=== PATIENT | female | born 1950 | race Caucasian/White ===

== ENCOUNTER 2020-11-24 06:28 | Day surgery (SDC) | payer MEDICARE, OTHER ==
[2020-11-24] MEDS ORDERED: Lactated Ringers 1,000 ML IV SCH (06:30)
[2020-11-24] MEDS ORDERED: DIPRIVAN 200 MG/20 ML IV ONE (07:52)
[2020-11-24] MEDS ORDERED: Lactated Ringers 1,000 ML IV ONE (08:05)
[2020-11-24 08:45] VITALS: O2SAT 95
[2020-11-24 09:13] VITALS: BP 144/68; PULSE 57
--- NOTE | 2020-11-24 09:20 | OP ---
SURGERY DATE/TIME: 11/24/2020 0801 PREOPERATIVE DIAGNOSIS: Dysphagia. POSTOPERATIVE DIAGNOSES: 1) Hiatal hernia. 2) Mild gastritis. 3) Esophageal spasms. PROCEDURE: Esophagogastroduodenoscopy with biopsy. SURGEON: Dr. Tanner. ANESTHESIA: Medications were given by the anesthesia department. BRIEF HISTORY: The patient is a 70 year old white female who is complaining of dysphagia. She reports an area of her neck as well as lower in her chest. The patient is felt the need to have endoscopic evaluation. She was appraised of the risks of the procedure including the risk of perforation, phlebitis, untoward reaction to medication, bleeding and missed lesions. The patient verbalized her understanding and desired to have the procedure performed. DESCRIPTION OF PROCEDURE: The patient was given the medications by the anesthesia department. She had continuous pulse oximetry, ECG monitoring, intermittent blood pressure monitoring and tidal CO2 monitoring during the examination. She was placed in the left lateral decubitus position. A bite block was placed and the flexible Olympus gastroscope was used to intubate the oropharynx. A view of the larynx was obtained and was normal. The scope was easily introduced in the esophagus which appeared to be normal throughout its length although there was noted what appeared to be esophageal spasm present. The gastroesophageal junction appeared to be normal. The scope was passed in the stomach where normal gastric rugal folds were seen and these distended nicely with insufflation of air. The scope was passed along the greater curvature of the stomach to the antrum which appeared to be mildly erythematous. The pylorus was encountered and intubated. The duodenum inspected and found to be normal. The scope is withdrawn towards the stomach. Again a retroflex view was obtained of the lesser curvature, fundus and cardia regions of the stomach and this is where we noted the patient had hiatal hernia. Biopsies were obtained from the gastric antrum to rule out the presence of Helicobacter pylori-type organisms with cold biopsy forceps. No other problems were noted. The scope is removed from the patient who tolerated the procedure well and sent back to outpatient recovery in good condition.
== END 2020-11-24 09:17 | disposition home or self-care (01) ==
LOC: SDC 06:28
PROVIDERS: ATTEND Family Medicine
DX: K44.9 Diaphragmatic hernia without obstruction or gangrene (principal); K29.70 Gastritis, unspecified, without bleeding; K22.4 Dyskinesia of esophagus; I10 Essential (primary) hypertension; Z79.899 Other long term (current) drug therapy
CPT/HCPCS: J2704

== ENCOUNTER 2021-07-20 16:30 | Emergency (ER) | payer MEDICARE, BC ==
--- NOTE | 2021-07-20 18:33 | ERPHSYRPT ---
- History of Present Illness Time Seen by Provider: 07/20/21 17:00 Source: patient Exam Limitations: no limitations Patient Subjective Stated Complaint: headache Triage Nursing Assessment: Patient ambulated back to ED and transferred self to bed. Patient A+O x3. Patient's skin pink, warm and dry. Patient complains of headache for 3 weeks. Patient states she fell out of bed 3 weeks ago hitting the right side of her head. Patient states ever since she has been dizzy, nauseated when she bends down and pain to back of head and behind eyes 6/10. Patient states she has been falling 4- 5 times since. Patient also complains of occasional forgetfulness. Physician History: Patient is a 70-year-old female presents to our ED with a 3-week history of a headache. Patient states she fell out of her bed and struck her head on the side of her nightstand. Since then patient has been experiencing a constant ongoing headache. Patient occasionally feels dizzy and nauseated. Patient is not dizzy or nauseated at this time. When she tends to bend over she feels pain behind her eye. Patient has a history of migraine headaches. Symptoms are mild to moderate in intensity. No specific worsening improving factors. No fever. No photophobia. No neck pain. Cervical spine cleared clinically. No associated chest pain or shortness of breath. No diarrhea. No rash. Patient cares for her 90-year-old father. Patient voices no other complaints or concerns at this time. Timing/Duration: week(s) (3 weeks) Severity: moderate Modifying Factors: Improves With: nothing. Worsens With: ibuprofen Associated Symptoms: headaches, other (Intermittent dizziness), No vomiting Allergies/Adverse Reactions: codeine Adverse Reaction (Verified 07/20/21 16:56) Itching Home Medications: Acetaminophen 325 mg [Tylenol 325 mg] 325 mg PO UD 11/19/20 [History] Lisinopril/Hydrochlorothiazide [Lisinopril-Hctz 20-25 mg Tab] 1 each PO DAILY 11/19/20 [History] Nystatin 500,000 unit PO DAILY 11/19/20 [History] Omeprazole 20 mg PO DAILY 11/19/20 [History] Oxybutynin Chloride [Ditropan Xl] 5 mg PO TID 11/19/20 [History] Paroxetine HCl 20 mg [Paxil 20 MG] 20 mg PO DAILY 11/19/20 [History] Simvastatin 20Mg [Zocor 20Mg] 20 mg PO DAILY 11/19/20 [History] Hx Influenza Vaccination/Date Given: No Hx Pneumococcal Vaccination/Date Given: No Immunizations Up to Date: Yes Travel Risk - International Travel Have you traveled outside of the country in past 3 weeks: No - Coronavirus Screening Are you exhibiting any of the following symptoms?: No Close contact with a COVID-19 positive Pt in past 14-21 Days: No - Vaccine Status Have you recieved a Covid-19 vaccination: Yes 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: [employer] - Review of Systems Constitutional: No Symptoms, No Fever, No Chills Eyes: No Symptoms Ears, Nose, & Throat: No Symptoms Respiratory: No Symptoms, No Cough, No Dyspnea Cardiac: No Symptoms, No Chest Pain, No Edema, No Syncope Abdominal/Gastrointestinal: No Symptoms, No Abdominal Pain, No Nausea, No Vomiting, No Diarrhea Genitourinary Symptoms: No Symptoms, No Dysuria Musculoskeletal: No Symptoms, No Back Pain, No Neck Pain Skin: No Symptoms, No Rash Neurological: No Symptoms, No Dizziness, No Focal Weakness, No Sensory Changes Psychological: No Symptoms Endocrine: No Symptoms Hematologic/Lymphatic: No Symptoms Immunological/Allergic: No Symptoms All Other Systems: Reviewed and Negative - Past Medical History Pertinent Past Medical History: Yes Neurological History: No Pertinent History ENT History: No Pertinent History Cardiac History: No Pertinent History Respiratory History: No Pertinent History Endocrine Medical History: No Pertinent History Musculoskeletal History: No Pertinent History GI Medical History: GERD History: No Pertinent History Psycho-Social History: No Pertinent History Female Reproductive Disorders: Breast Cancer Other Medical History: Right sided breast cancer lumpectomy 2020 - Past Surgical History Past Surgical History: Yes Neuro Surgical History: No Pertinent History Cardiac: No Pertinent History Respiratory: No Pertinent History Gastrointestinal: Hernia Repair Genitourinary: No Pertinent History Musculoskeletal: Other Female Surgical History: Lumpectomy Other Surgical History: states "daniel and screws in my back, hernia early 2020 - Social History Smoking Status: Never smoker Exposure to second hand smoke: No Drug Use: none Patient Lives Alone: No - Female History Hx Now: No - Nursing Vital Signs Nursing Vital Signs: Initial Vital Signs Temperature 97.6 F 02/07/22 16:56 Pulse Rate 72 07/20/21 16:56 Respiratory Rate 18 07/20/21 16:56 Blood Pressure 192/96 07/20/21 16:56 O2 Sat by Pulse Oximetry 97 07/20/21 16:56 Pain Scale Pain Intensity 6 - Physical Exam General Appearance: no apparent distress, alert Eye Exam: PERRL/EOMI, eyes nml inspection Ears, Nose, Throat Exam: normal ENT inspection, TMs normal, pharynx normal, moist mucous membranes Neck Exam: normal inspection, non-tender, supple, full range of motion Respiratory Exam: normal breath sounds, lungs clear, No respiratory distress Cardiovascular Exam: regular rate/rhythm, normal heart sounds, normal peripheral pulses Gastrointestinal/Abdomen Exam: soft, normal bowel sounds, No tenderness, No mass Back Exam: normal inspection, normal range of motion, No CVA tenderness, No vertebral tenderness Extremity Exam: normal inspection, normal range of motion, pelvis stable Neurologic Exam: alert, oriented x 3, cooperative, normal mood/affect, nml cerebellar function, nml station & gait, sensation nml, No motor deficits Skin Exam: normal color, warm, dry, No rash Lymphatic Exam: No adenopathy SpO2 Interpretation: normal SpO2: 97 O2 Delivery: Room Air - Course Nursing assessment & vital signs reviewed: Yes - CT Exams Head CT Interpretation: Tele-radiologist Report (No comps. Nonacute senile brain.) Ordered Tests: Active Orders 24 hr Category Date Time Status HEAD WITHOUT CONTRAST [CT] Stat Exams 07/20/21 17:06 Taken Medication Summary Generic Name Dose Route Start Last Admin Trade Name Freq PRN Reason Stop Dose Admin Acetaminophen 1,000 mg 07/20/21 18:38 07/20/21 18:41 Acetaminophen 500 Mg Tablet PO 08/19/21 18:37 1,000 mg Q4H PRN PRN Administration HEADACHE Discontinued Medications Generic Name Dose Route Start Last Admin Trade Name Freq PRN Reason Stop Dose Admin Ketorolac Tromethamine 30 mg 07/20/21 18:38 07/20/21 18:42 Ketorolac Tromethamine 30 Mg/Ml Inj IM 07/20/21 18:39 30 mg STAT ONE Administration Ketorolac Tromethamine Confirm 07/20/21 18:40 Ketorolac Tromethamine 30 Mg/Ml Inj Administered 07/20/21 18:41 Dose 30 mg .ROUTE .[facility] ONE - Progress Progress: improved Progress Note: Patient reassessed. Headache improved. Patient states he is ready for discharge. CT head negative for acute intracranial pathology. Patient symptomatology likely due to concussion. Portions of this note were created with voice recognition technology. There may be grammatical, spelling, punctuation or sound alike errors 07/20/21 18:55 Patient agrees to follow-up with Dr. Tanner within 48 hours for evaluation. 07/20/21 18:56 Counseled pt/family regarding: diagnosis, need for follow-up, rad results - Departure Departure Disposition: Home Clinical Impression: Concussion Condition: Stable Critical Care Time: No Referrals: MARCIAL TANNER [Primary Care Provider] - Follow up/PCP as directed Instructions: Concussion, Adult (DC) Additional Instructions: Discharge/Care Plan NARINDER ROTH was seen on 07/20/21 in the Emergency Room. The patient was counseled regarding Diagnosis,Lab results, Imaging studies, need for follow up and when to return to the Emergency Room. Prescriptions given: Discharge Note I have spoken with the patient and/or caregivers. I have explained the patient's condition, diagnosis and treatment plan based on the information available to me at this time. I have answered the patient's and/or caregiver's questions and addressed any concerns. The patient and/or caregivers have as good understanding of the patient's diagnosis, condition and treatment plan as can be expected at this point. The vital signs have been stable. The patient's condition is stable and appropriate for discharge from the emergency department. The patient will pursue further outpatient evaluation with the primary care physician or other designated or consulting physician as outlined in the discharge instructions. The patient and/or caregivers are agreeable to this plan of care and follow-up instructions have been explained in detail. The patient and/or caregivers have received these instruction. The patient/and or caregivers are aware that any significant change in condition or worsening of symptoms should prompt an immediate return to this or the closest emergency department or call 911.
[2021-07-20 18:38] VITALS: BP 180/94; PULSE 70
[2021-07-20] MEDS ORDERED: TYLENOL EXTRA STRENGTH 500 MG PO PRN (18:38)
[2021-07-20] MEDS ORDERED: TORAdol 30 mg Injection IM ONE (18:38)
[2021-07-20] MEDS ORDERED: TYLENOL EXTRA STRENGTH 500 MG ONE (18:39)
[2021-07-20] MEDS ORDERED: TORAdol 30 mg Injection ONE (18:40)
[2021-07-20 18:44] VITALS: O2SAT 97
--- NOTE | 2021-07-21 08:37 | XRAY ---
Indication: Headache. Status post fall. Multiple contiguous axial images obtained through the head without contrast. Comparison: None Age-appropriate global atrophy and mild periventricular degenerative micro-ischemia bilaterally. Anterior limb right internal capsule demonstrates remote lacunar infarct. No acute intracranial hemorrhage, abnormal extra-axial fluid collection, or mass effect. Fourth ventricle is midline without hydrocephalus. Bony calvarium intact. Visualized paranasal sinuses and mastoid air cells are clear. 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
== END 2021-07-20 18:59 | disposition home or self-care (01) ==
LOC: ED 16:30
DX: S06.0X0A Concussion without loss of consciousness, initial encounter (principal); W06.XXXA Fall from bed, initial encounter; Y92.003 Bedroom of unspecified non-institutional (private) residence as the place of occurrence of the external cause; R51.9 Headache, unspecified; R42 Dizziness and giddiness; R11.0 Nausea; K21.9 Gastro-esophageal reflux disease without esophagitis; Z79.899 Other long term (current) drug therapy
CPT/HCPCS: 70450; 96372; 99284; J1885; A9270-GY

== ENCOUNTER 2022-04-16 05:20 | Emergency (ER) | payer MEDICARE, BC ==
[2022-04-16] MEDS ORDERED: TYLENOL 325 MG PO STA (05:51)
[2022-04-16] MEDS ORDERED: TYLENOL 325 MG ONE (05:54)
--- NOTE | 2022-04-16 06:00 | ERPHSYRPT ---
- History of Present Illness Time Seen by Provider: 04/16/22 05:23 Source: patient Exam Limitations: no limitations Patient Subjective Stated Complaint: pt states "I fell into a tree and tripped." Triage Nursing Assessment: pt ambulated into the er; pt is axo x4; c/o fall; pt states 10/10 pain to left wrist; bruising and swelling present to left wrist; strong left radial pulse; good cap refill to left hand; limited ROM to left wrist; hypertensive Physician History: 71-year-old female presented in the ER with chief complaint of left wrist pain for the last 2 days when she fell on outstretched hand. Patient thought it was a sprain but pain is worsening since midnight and is unable to get comfortable. No numbness or tingling in the fingers/thumb. No injury anywhere else. Occurred: days ago (2) Method of Injury: fell Quality: sharpness Severity of Pain-Max: severe Severity of Pain-Current: severe Extremities Pain Location: wrist: left Modifying Factors: Improves With: cold therapy. Worsens With: movement Associated Symptoms: none Allergies/Adverse Reactions: codeine Adverse Reaction (Verified 04/16/22 05:26) Itching Home Medications: Acetaminophen 325 mg [Tylenol 325 mg] 325 mg PO UD 11/19/20 [History] Lisinopril/Hydrochlorothiazide [Lisinopril-Hctz 20-25 mg Tab] 1 each PO DAILY 11/19/20 [History] Nystatin 500,000 unit PO DAILY 11/19/20 [History] Omeprazole 20 mg PO DAILY 11/19/20 [History] Oxybutynin Chloride [Ditropan Xl] 5 mg PO TID 11/19/20 [History] Paroxetine HCl 20 mg [Paxil 20 MG] 20 mg PO DAILY 11/19/20 [History] Simvastatin 20Mg [Zocor 20Mg] 20 mg PO DAILY 11/19/20 [History] Hx Tetanus, Diphtheria Vaccination/Date Given: No (unknown) Hx Influenza Vaccination/Date Given: No Hx Pneumococcal Vaccination/Date Given: No Travel Risk - International Travel Have you traveled outside of the country in past 3 weeks: No - Coronavirus Screening Are you exhibiting any of the following symptoms?: No Close contact with a COVID-19 positive Pt in past - Days: No - Vaccine Status Have you recieved a Covid-19 vaccination: Yes 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: [employer] - Review of Systems Constitutional: No Symptoms Ears, Nose, & Throat: No Symptoms Respiratory: No Symptoms Cardiac: No Symptoms Musculoskeletal: Injury Neurological: No Symptoms Endocrine: No Symptoms Hematologic/Lymphatic: No Symptoms Immunological/Allergic: No Symptoms - Past Medical History Pertinent Past Medical History: Yes Neurological History: No Pertinent History ENT History: No Pertinent History Cardiac History: No Pertinent History Respiratory History: No Pertinent History Endocrine Medical History: No Pertinent History Musculoskeletal History: No Pertinent History GI Medical History: GERD History: No Pertinent History Psycho-Social History: No Pertinent History Female Reproductive Disorders: Breast Cancer Other Medical History: Right sided breast cancer lumpectomy 2020 - Past Surgical History Past Surgical History: Yes Neuro Surgical History: No Pertinent History Cardiac: No Pertinent History Respiratory: No Pertinent History Gastrointestinal: Hernia Repair Genitourinary: No Pertinent History Musculoskeletal: Other Female Surgical History: Lumpectomy Other Surgical History: states "daniel and screws in my back, hernia early 2020 - Social History Smoking Status: Never smoker Exposure to second hand smoke: No Drug Use: none Patient Lives Alone: No - Nursing Vital Signs Nursing Vital Signs: Initial Vital Signs Temperature 97.8 F 04/16/22 05:26 Respiratory Rate 18 04/16/22 05:26 Blood Pressure 185/86 04/16/22 05:26 O2 Sat by Pulse Oximetry 97 04/16/22 05:26 Pain Scale Pain Intensity 7 - Physical Exam General Appearance: no apparent distress, alert Neck Exam: normal inspection, full range of motion Cardiovascular/Respiratory Exam: normal breath sounds, regular rate/rhythm Wrist Exam: bone tenderness (Left distal radius), limited ROM, swelling Hand Exam: normal inspection, non-tender, no evidence of injury, normal ROM Neuro/Tendon Exam: normal sensation, normal motor functions, normal tendon functions Mental Status Exam: alert, oriented x 3, cooperative Skin Exam: normal color SpO2 Interpretation: normal SpO2: 97 O2 Delivery: Room Air Ordered Tests: Medication Summary Discontinued Medications Generic Name Dose Route Start Last Admin Trade Name Freq PRN Reason Stop Dose Admin Acetaminophen 975 mg 04/16/22 05:51 04/16/22 05:55 Acetaminophen 325 Mg Tablet PO 04/16/22 05:52 975 mg STAT STA Administration Acetaminophen Confirm 04/16/22 05:54 Acetaminophen 325 Mg Tablet Administered 04/16/22 05:55 Dose 975 mg .ROUTE .[facility]-MED ONE - Progress Progress: pain not gone completely Progress Note: 04/16/22 05:54 She is given Tylenol for symptomatic relief. Has distal radius fracture, placed in a Ortho-Glass sugar-tong splint by RN with intact distal neurovascular after. Recommended outpatient orthopedics follow-up. Counseled pt/family regarding: diagnosis, need for follow-up, rad results - Departure Departure Disposition: Home Clinical Impression: Distal radius fracture, left, Fall Condition: Stable Critical Care Time: No Referrals: MARCIAL OROZCO [Primary Care Provider] - Follow Up with PCP/3 days SARA MARIO NP [NON-STAFF PHY W/O PRIVILEGES] - Follow up/PCP as directed (1-2 days for reevaluation) Instructions: Preventing Falls in Older Adults Additional Instructions: Intermittent ice application. Take Tylenol as needed for pain. Follow-up with primary care/orthopedics for reevaluation. Return to ER for any worsening. Prescriptions: Hydrocodone/Acetaminophen [Hydrocodone-Acetamin 5-325 mg] 1 tab PO Q6HPRN PRN 3 Days #10 tablet MDD 4 PRN Reason: Pain
[2022-04-16 06:26] VITALS: BP 170/96; PULSE 77
--- NOTE | 2022-04-16 08:49 | XRAY ---
Indication: Pain following fall. Comparison: None 2 view left forearm demonstrates nondisplaced distal radius corner fracture, lateral aspect with intra-articular extension. Elsewhere osteopenia and mild/moderate 1st metacarpal multangular scaphoid degenerative changes.
--- NOTE | 2022-04-16 08:50 | XRAY ---
Indication: Pain following fall. Comparison: None 3 view left wrist demonstrates nondisplaced distal radius corner fracture, lateral aspect with intra-articular extension. Elsewhere osteopenia and mild/moderate 1st metacarpal multangular scaphoid degenerative changes.
[2022-04-17 14:33] VITALS: O2SAT 97
== END 2022-04-16 06:35 | disposition home or self-care (01) ==
LOC: ED 05:20
DX: S52.502A Unspecified fracture of the lower end of left radius, initial encounter for closed fracture (principal); W01.198A Fall on same level from slipping, tripping and stumbling with subsequent striking against other object, initial encounter; M25.532 Pain in left wrist; Z79.899 Other long term (current) drug therapy; Z79.891 Long term (current) use of opiate analgesic
CPT/HCPCS: 29105; 73090; 73110; 99283; A9270-GY